=== PATIENT | male | born 1935 | race Caucasian/White ===

== ENCOUNTER → 2016-11-07 | Outpatient (CLI) | payer OTHER ==
--- NOTE | 2016-11-07 10:37 | REP ---
Renal vascular ultrasound: Right Kidney: Extraparenchymal renal artery. Peak renal artery flow velocity 146 cm per seconds Peak aortic velocity: 89.6 cm/sec Renal/aortic ratio: 1.6 Intraparenchymal renal arteries. Resistive index: upper pole 0.64 mid pole 0.67 lower pole 0.54 Acceleration time: upper pole 0.081 mid pole 0.044 lower pole 0.073 Left kidney: Extraparenchymal renal artery: Peak renal artery flow velocity: 75.2 cm/sec. Peak aortic velocity: 89.6 cm/sec Renal/aortic ratio: 0.8 Intraparenchymal renal arteries: Resistive index: Upper pole 0.61 mid pole 0.73 lower pole 0.64 Acceleration time: Upper pole 0.066 mid pole 0.059 lower pole 0.088 Impression: There is no evidence of renal artery stenosis by Doppler assessment. The study is technically difficult because of the patient's inability to breath hold during the examination. Depending on clinical concerns consider follow-up renal artery MRA or CTA. Renal and bladder ultrasound: The right kidney is low normal size measuring 9.2 x 5.4 x 6.4 cm. The left kidney is normal size measuring 10.7 x 4.7 x 5.2 cm. Renal cortical echogenicity is normal bilaterally. There is no hydronephrosis on the right or left. There is a 12 mm right renal right upper pole cyst. There is a 11 mm right renal lower pole cyst. There is a 2.7 cm left renal parapelvic cyst. There is a 1.6 cm left renal mid pole cyst. There are no renal solid masses. There are no renal calculi. Impression: Bilateral renal cysts. The right kidney is in the low normal size. Bladder ultrasound: The bladder is incompletely distended and cannot be further evaluated at this time. Signed by Fan Hernandez MD 11/07/2016 10:29 A
== END ==
LOC: M RAD 08:53
PROVIDERS: ATTEND Internal Medicine Nephrology
DX: I12.9 Hypertensive chronic kidney disease with stage 1 through stage 4 chronic kidney disease, or unspecified chronic kidney disease (principal); N18.3 Chronic kidney disease, stage 3 (moderate)

== ENCOUNTER → 2019-12-04 | Outpatient (CLI) | payer MEDICARE ==
[~2019-12-04] MED LIST: ALLO100T PO; AMLO1TAB25 PO; ASPI81TA86 PO; ATOR40TA75 PO; BIMA01SOL OU; CLOP75TA2 PO; FENO48TA7 PO; FINA5TAB2 PO; FISH1000 PO; METO1TAB7 PO; TIMO0.5S42 OP; TRIA75TA PO
== END ==
LOC: M LABSMTC 09:50
PROVIDERS: ATTEND Anesthesiology
DX: Z01.812 Encounter for preprocedural laboratory examination (principal); Z20.828 Contact with and (suspected) exposure to other viral communicable diseases
CPT/HCPCS: C9803; U0003

== ENCOUNTER 2019-12-09 07:58 | Day surgery (SDC) | payer MEDICARE ==
[~2019-12-09] VITALS: Ht 172.7 cm; Wt 73.7 kg
[~2019-12-09 07:58] MED LIST changes: +NS 1,000 ML IV ONE
[2019-12-09] MEDS ORDERED: propofoL 200 MG/20 ML VIAL As Ordered ONE (08:56)
--- NOTE | 2019-12-09 09:13 | ROOR ---
Patient Name: Donald Nichole Procedure Date: 12/09/2019 8:49 AM Date of : 1935 Age: 83 Room: [facility] Gender: Male Note Status: Finalized Procedure: Colonoscopy Indications: High risk colon cancer surveillance: Personal history of colonic polyps Providers: DO Griselda Navarro MD: Cristian HOANG NP Requesting Provider: Medicines: Propofol per Anesthesia Complications: No immediate complications. Procedure: Pre-Anesthesia Assessment: - Prior to the procedure, a History and Physical was performed, and patient medications and allergies were reviewed. The patient is competent. The risks and benefits of the procedure and the sedation options and risks were discussed with the patient. All questions were answered and informed consent was obtained. Patient identification and proposed procedure were verified by the physician, the nurse, the fats and oils loader and the broadband technician in the endoscopy suite. Mental Status Examination: alert and oriented. Airway Examination: normal oropharyngeal airway and neck mobility. Respiratory Examination: clear to auscultation. CV Examination: normal. Prophylactic Antibiotics: The patient does not require prophylactic antibiotics. Prior Anticoagulants: The patient has taken Plavix (clopidogrel), last dose was 6 days prior to procedure. ASA Grade Assessment: II - A patient with mild systemic disease. After reviewing the risks and benefits, the patient was deemed in satisfactory condition to undergo the procedure. The anesthesia plan was to use monitored anesthesia care (MAC). Immediately prior to administration of medications, the patient was re-assessed for adequacy to receive sedatives. The heart rate, respiratory rate, oxygen saturations, blood pressure, adequacy of pulmonary ventilation, and response to care were monitored throughout the procedure. The physical status of the patient was re-assessed after the procedure. The Colonoscope was introduced through the anus and advanced to the cecum, identified by appendiceal orifice and ileocecal valve. The colonoscopy was performed without difficulty. The patient tolerated the procedure well. Findings: A less than 5 mm polyp was found in the transverse colon. The polyp was hyperplastic. The polyp was removed with a jumbo cold forceps. Resection and retrieval were complete. Estimated blood loss was minimal. Multiple small and large-mouthed diverticula were found in the sigmoid colon and descending colon. Non-bleeding internal hemorrhoids were found during retroflexion. The hemorrhoids were Grade I (internal hemorrhoids that do not prolapse). Impression: - One less than 5 mm polyp in the transverse colon, removed with a jumbo cold forceps. Resected and retrieved. - Diverticulosis in the sigmoid colon and in the descending colon. - Non-bleeding internal hemorrhoids. Recommendation: - Repeat colonoscopy in 5-10 years for surveillance based on pathology results. - Return to my office at appointment to be scheduled. - Await pathology results. - Resume Plavix (clopidogrel) at prior dose today. Fan Martin DO 12/09/2019 9:13:03 AM Electronically signed by Fan Martin DO Number of Addenda: 0 Note Initiated On: 12/09/2019 8:49 AM Estimated Blood Loss: Estimated blood loss was minimal.
[2019-12-09 09:30] VITALS: BP 127/60
== END 2019-12-09 10:00 | disposition home or self-care (01) ==
LOC: M OPP 07:58
PROVIDERS: ATTEND Surgery
DX: Z12.11 Encounter for screening for malignant neoplasm of colon (principal); Z86.010 Personal history of colon polyps; D12.3 Benign neoplasm of transverse colon; K64.0 First degree hemorrhoids; K57.30 Diverticulosis of large intestine without perforation or abscess without bleeding; N18.3 Chronic kidney disease, stage 3 (moderate); Z79.82 Long term (current) use of aspirin; Z79.899 Other long term (current) drug therapy; Z95.5 Presence of coronary angioplasty implant and graft; Z90.49 Acquired absence of other specified parts of digestive tract

== ENCOUNTER → 2020-10-19 | Outpatient (REF) | payer MEDICARE ==
[~2020-10-19] MED LIST changes: -NS 1,000 ML IV ONE
== END ==
LOC: M SMT 18:31
PROVIDERS: ATTEND Urology
DX: R97.20 Elevated prostate specific antigen [PSA] (principal)

== ENCOUNTER → 2020-10-19 | Outpatient (CLI) | payer MEDICARE ==
--- NOTE | 2020-10-19 16:05 | REPPI ---
INDICATION: ELEVATED PSA. COMPARISON: None. TECHNIQUE: Transrectal prostate sonography. FINDINGS: Trans rectal prostate sonography demonstrates unremarkable seminal vesicles. Prostate gland is heterogeneous, with calcifications and cystic changes noted. Glandular dimensions are measured at 4.9 x 3.8 x 4.4 cm with a calculated glandular volume of 42.6 ml. In the left apex there is a 0.5 cm hypoechoic nodule. Transrectal sonographic guidance is provided to Dr. Vernon who performed trans rectal ultrasound guided needle biopsy procedure. IMPRESSION: Transrectal prostate sonographic findings as above. <Electronically signed by Eleazar Valdes > 10/19/20 [id number]
== END ==
LOC: M PLAIMG 14:13
PROVIDERS: ATTEND Urology
DX: R97.20 Elevated prostate specific antigen [PSA] (principal)

== ENCOUNTER → 2020-12-06 | Outpatient (CLI) | payer MEDICARE ==
[~2020-12-06] MED LIST changes: -FENO48TA7 PO; +FENO48TA8 PO; +GASTROGRAFIN SOLUTION 30ML (Q9963) As Ordered ONE; +ISOVUE-370 76% 100ML VIAL As Ordered ONE
--- NOTE | 2020-12-06 14:27 | REP ---
INDICATION: PROSTATE CA. COMPARISON: CT 12/06/2020. TECHNIQUE/RADIOTRACER AND DOSE: Following the intravenous administration of 22.0mCi technetium 99 M MDP, patient's whole-body is imaged in multiple projections. FINDINGS: There are multiple areas of increased radiotracer uptake. There is diffuse intense increased uptake in the medial aspect of the right iliac bone. There is a small focus of increased uptake at the right iliac crest. There is diffuse increased uptake throughout the right ischium and pubis. There is diffuse increased uptake in the proximal left femur extending into the mid shaft. There is increased uptake in the right scapula diffusely, more so in the region of the glenoid. There is increased uptake in the T10 vertebral body diffusely. There is a lesser degree of increased uptake in the T8 vertebral body. Correlating with today's CT scan, these areas of bone demonstrate coarsening of the trabecular pattern with areas of cortical thickening, most consistent with Paget's disease. Mild scattered uptake in the lumbar spine region appears to be more compatible with arthritic uptake. Renal and bladder activity are seen. IMPRESSION: Multiple areas of increased uptake in the osseous structures as discussed above. 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 <Electronically signed by Fan Leblanc > 12/06/20 [id number]
--- NOTE | 2020-12-07 07:03 | REP ---
INDICATION: PROSTATE CA. COMPARISON: None TECHNIQUE: Axial contrast-enhanced images from the lung bases to the pubic symphysis using 100 cc Isovue 370 intravenous contrast material. Delayed images of the abdomen along with coronal and sagittal reformations obtained. This CT examination was performed using the following dose reduction techniques: Automated exposure control, adjustment of mA and/or kv according to the patient's size, and the use of iterative reconstruction technique. FINDINGS: Lung bases demonstrate chronic appearing interstitial changes along with calcified pleural plaques along the diaphragmatic surfaces bilaterally. Liver demonstrates fatty infiltration without focal hepatic lesion. Spleen, pancreas, gallbladder, and bilateral adrenal glands are normal. Kidneys demonstrate age-related cortical thinning along with few scattered cysts (left greater than right). A single 1.3 cm hyperdense lesion is noted along the posterior superior aspect of the left kidney (series 201; image 37) which remains stable on delayed images and may represent complex proteinaceous cyst. The enteric system including stomach, small, and large bowel appears normal. No evidence for obstruction or acute inflammatory process. Normal terminal ileum and appendix are identified in the right lower quadrant. Scattered colonic diverticula noted without acute diverticulitis. Pelvis demonstrates enlarged prostate gland with mass effect on the base of the bladder. No ascites. No free air. No intraperitoneal or retroperitoneal adenopathy. Abdominal aorta and vasculature demonstrate atherosclerotic changes without aneurysm. Osseous structures demonstrate age-related osteopenia and degenerative changes although scattered somewhat irregular sclerotic areas are also noted primarily involving the right hemipelvis and few thoracolumbar vertebral bodies raising the possibility of osseous metastatic disease. IMPRESSION: 1. Chronic age-related renal disease and few scattered simple cysts. Single hyperdense lesion in the left kidney likely represents complex proteinaceous cyst and may warrant ultrasound follow-up. 2. Enlarged prostate gland with mass effect on the base of the bladder. Osseous changes are nonspecific and skeletal metastases cannot definitively be excluded. <Electronically signed by Edison Mendoza > 12/07/20 [id number]
== END ==
LOC: M RAD 09:34
PROVIDERS: ATTEND Urology
DX: C61 Malignant neoplasm of prostate (principal)
CPT/HCPCS: 74177; 78306; A9503; Q9963; Q9967

== ENCOUNTER → 2021-04-21 | Outpatient (REF) | payer MEDICARE ==
[~2021-04-21] MED LIST changes: +ASPI81CH33 PO; -GASTROGRAFIN SOLUTION 30ML (Q9963) As Ordered ONE; -ISOVUE-370 76% 100ML VIAL As Ordered ONE; +PLAV1TAB2 PO; +SYST1SOL4 OP
== END ==
LOC: M LAB REF 16:52
PROVIDERS: ATTEND Nurse Practitioner Family
DX: E83.42 Hypomagnesemia (principal)

== ENCOUNTER → 2022-01-18 | Outpatient (CLI) | payer MEDICARE ==
[~2022-01-18] MED LIST changes: +VENL37.598 PO
== END ==
LOC: M RAD 10:06
PROVIDERS: ATTEND Internal Medicine
DX: C79.51 Secondary malignant neoplasm of bone (principal); C61 Malignant neoplasm of prostate
CPT/HCPCS: 78306; A9503

== ENCOUNTER 2024-06-08 09:19 | Day surgery (SDC) | payer MEDICARE ==
[~2024-06-08] VITALS: Ht 172.7 cm; Wt 73.0 kg
[~2024-06-08 09:19] MED LIST changes: +CLOP75TA99 PO; +COLA100C5 PO; +ISOS1TAB35; +LEUP1INJ4 SC; +LR 1,000 ML IV SCH; -PLAV1TAB2 PO; +POTA-151
[2024-06-08] MEDS: CYCLOPENTOLATE 1% OPHTH SOLN 2ML BTL OD SCH (10:21)
[2024-06-08] MEDS: PHENYLEPHRINE 2.5% OPHTH SOL 2ML OD SCH (10:21)
[2024-06-08] MEDS: TETRACAINE 0.5% OPHTH SOLN 4ML OD SCH (10:21)
[2024-06-08] MEDS: FLURBIPROFEN 0.03% OPHTH SOLN 2.5 ML OD SCH (10:22)
[2024-06-08] MEDS ORDERED: MIDAZOLAM INJ 2MG/2ML VIAL As Ordered ONE (10:58)
[2024-06-08] MEDS ORDERED: fentaNYL 100 MCG/2 ML INJECTION As Ordered ONE (10:58)
[2024-06-08] MEDS: LIDOCAINE 1% SDV 5ML VIAL As Ordered ONE (12:19)
[2024-06-08] MEDS: EPINEPHrine INJ 1 MG/ML 1ML AMP As Ordered ONE (12:25)
[2024-06-08] MEDS: TRYPAN BLUE 0.06 % 2.25 ML OPHTH SYR (VISIONBLUE) As Ordered ONE (12:25)
[2024-06-08] MEDS: PROVISC 10 MG/ML 0.85ML SYRINGE As Ordered ONE (12:25)
[2024-06-08] MEDS: CEFUROXIME 1MG/0.1ML INTRACAMERAL INJ As Ordered ONE (12:41)
[2024-06-08 12:55] VITALS: BP 179/77; TEMP 97.9; O2SAT 100
== END 2024-06-08 13:15 | disposition home or self-care (01) ==
LOC: M SDC 09:19
PROVIDERS: ATTEND Ophthalmology
DX: H40.1112 Primary open-angle glaucoma, right eye, moderate stage (principal); H25.11 Age-related nuclear cataract, right eye; I10 Essential (primary) hypertension; E78.2 Mixed hyperlipidemia; C61 Malignant neoplasm of prostate; R73.03 Prediabetes; N28.9 Disorder of kidney and ureter, unspecified; Z95.5 Presence of coronary angioplasty implant and graft; M10.9 Gout, unspecified; Z79.899 Other long term (current) drug therapy; Z79.82 Long term (current) use of aspirin; Z90.49 Acquired absence of other specified parts of digestive tract
CPT/HCPCS: 65820; 66984; A4649; C1889; J0171; J0697; J2250; J3010; V2632

== ENCOUNTER 2024-07-06 11:46 | Day surgery (SDC) | payer MEDICARE ==
[~2024-07-06] VITALS: Ht 172.7 cm; Wt 72.2 kg
[2024-07-06] MEDS: CEFUROXIME 1MG/0.1ML INTRACAMERAL INJ As Ordered ONE (06:56)
[~2024-07-06 11:46] MED LIST changes: +MIDAZOLAM INJ 2MG/2ML VIAL As Ordered ONE; +PREDOPD
[2024-07-06] MEDS: CYCLOPENTOLATE 1% OPHTH SOLN 2ML BTL OS SCH (13:18)
[2024-07-06] MEDS: TETRACAINE 0.5% OPHTH SOLN 4ML OS SCH (13:18)
[2024-07-06] MEDS: PHENYLEPHRINE 2.5% OPHTH SOL 2ML OS SCH (13:18)
[2024-07-06] MEDS: FLURBIPROFEN 0.03% OPHTH SOLN 2.5 ML OS SCH (13:18)
[2024-07-06] MEDS: LIDOCAINE 1% SDV 5ML VIAL As Ordered ONE (14:40)
[2024-07-06] MEDS: TRYPAN BLUE 0.06 % 2.25 ML OPHTH SYR (VISIONBLUE) As Ordered ONE (14:45)
[2024-07-06] MEDS: DUOVISC (0.50ML VISCOAT/0.85ML PROVISC) OPHTH KIT As Ordered ONE (14:52)
[2024-07-06 15:09] VITALS: BP 148/65; TEMP 97.3; O2SAT 99
== END 2024-07-06 15:28 | disposition home or self-care (01) ==
LOC: M SDC 11:46
PROVIDERS: ATTEND Ophthalmology
DX: H40.1122 Primary open-angle glaucoma, left eye, moderate stage (principal); H25.12 Age-related nuclear cataract, left eye; I10 Essential (primary) hypertension; E78.00 Pure hypercholesterolemia, unspecified; C61 Malignant neoplasm of prostate; N28.9 Disorder of kidney and ureter, unspecified; M10.9 Gout, unspecified; Z95.5 Presence of coronary angioplasty implant and graft; Z79.82 Long term (current) use of aspirin; Z79.899 Other long term (current) drug therapy; Z90.49 Acquired absence of other specified parts of digestive tract; Z87.19 Personal history of other diseases of the digestive system; Z98.41 Cataract extraction status, right eye
CPT/HCPCS: 65820; 66984; C1889; J0697; J2250; V2632